=== PATIENT | female | born 1935 | race Caucasian/White ===

== ENCOUNTER 2017-01-06 12:05 | Emergency (ER) | payer MEDICARE ==
[~2017-01-06] VITALS: Ht 154.9 cm; Wt 54.4 kg
--- NOTE | ~2017-01-06 | CR281 ---
[facility] A Service of [facility] RADIOLOGY TEXT RESULTS PATIENT: RON ARNOLD LOCATION: [facility] : 37 UNIT #: [id number] AGE: [address]: Nadine Wellington SEX: F ORDER DR: [id number] [facility] [address] [place], [place] [address] [id number] E MR#: [id number] Acc #: [id number] NAME: RON ARNOLD. : 1935 SEX: F STUDY DATE/TIME: 01/06/2017 13:24 UNIT: [facility] ROOM: STUDY DESCRIPTION: CR Wrist Min 3 View Lt Attending Physician: Nadine Wellington Pa-C Ordering Physician: Nadine Wellington Pa-C Primary Care Physician: Jose M Woodruff M.D. MEDICAL IMAGING REPORT This report is preliminary unless electronic signature is present EXAM Left wrist 3 views 01/06/2017 HISTORY Left wrist pain and bruising laterally status post fall today at [facility]. FINDINGS Three views of the left wrist demonstrate no definite fracture. The bones are osteopenic. There is degenerative narrowing of the radiocarpal joint. Degenerative cyst formation involving the proximal carpal row and there is degenerative change involving the first carpometacarpal joint. Soft tissue swelling is seen about the left wrist. IMPRESSION 1. Osteopenia. No definite fracture. 2. Mild soft tissue swelling about the left wrist. Dictated by... Rob Perkins M.D. THIS IS AN ELECTRONICALLY VERIFIED REPORT Rob Perkins M.D. at 01/07/2017 10:36 AM KEITH/mechelle TD: 01/06/2017 14:02 JOB #: [id number] MEDICAL IMAGING REPORT Page 1 of 1 COPY
--- NOTE | ~2017-01-06 | CT71 ---
[facility] A Service of [facility] RADIOLOGY TEXT RESULTS PATIENT: RON ARNOLD LOCATION: [facility] : 37 UNIT #: [id number] AGE: [address]: Nadine Wellington SEX: F ORDER DR: [id number] [facility] [address] [place], [place] [address] [id number] P MR#: [id number] Acc #: [id number] NAME: RON ARNOLD : 1935 SEX: F STUDY DATE/TIME: 01/06/2017 13:03 UNIT: [place] ROOM: STUDY DESCRIPTION: CT Head Wo Contrast Attending Physician: Nadine Wellington Pa-C Ordering Physician: Nadine Wellington Pa-C Primary Care Physician: Jose M Woodruff M.D. MEDICAL IMAGING REPORT This report is preliminary unless electronic signature is present EXAM Head CT without contrast 01/06/2017 HISTORY Headache and head trauma status post fall at 11:30 a.m. today. Facial abrasions and nasal injury. No loss of consciousness. Hypertension and diabetes. FINDINGS This CT examination was performed with one or more of the following radiation dose reduction techniques: automatic exposure control, adjustment of mA and/or kV according to patient size, and iterative reconstruction. Axial images of the brain obtained without contrast show generalized atrophy. There is no evidence of mass effect, hemorrhage, or edema and no midline shift is seen. No acute changes are noted. IMPRESSION Atrophy; otherwise, normal CT of the brain. Dictated by... Rob Perkins M.D. THIS IS AN ELECTRONICALLY VERIFIED REPORT Rob Perkins M.D. at 01/07/2017 10:36 AM KEITH/mechelle TD: 01/06/2017 13:10 JOB #: [id number] [facility] A Service [facility] RADIOLOGY TEXT RESULTS PATIENT: RON ARNOLD LOCATION: [facility] : 37 UNIT #: [id number] AGE: [address]: Nadine Wellington SEX: F ORDER DR: MEDICAL IMAGING REPORT Page 1 of 1 COPY
--- NOTE | ~2017-01-06 | CR93 ---
[facility] A Service of [facility] RADIOLOGY TEXT RESULTS PATIENT: RON ARNOLD LOCATION: [facility] : 37 UNIT #: [id number] AGE: [address]: Nadine Wellington SEX: F ORDER DR: [id number] [facility] [address] [place], [place] [address] [id number] E MR#: [id number] Acc #: [id number] NAME: RON ARNOLD : 1935 SEX: F STUDY DATE/TIME: 01/06/2017 14:32 UNIT: [facility] ROOM: STUDY DESCRIPTION: CR Elbow Min 3 Views Lt Attending Physician: Nadine Wellington Pa-C Ordering Physician: Nadine Wellington Pa-C Primary Care Physician: Jose M Woodruff M.D. MEDICAL IMAGING REPORT This report is preliminary unless electronic signature is present EXAM Right elbow 3 views, 01/06/2017 HISTORY Right elbow pain and bruising posteriorly status post fall today at [facility]. FINDINGS 3 views of the right elbow demonstrate minimal lucency along the medial epicondyle suspicious for nondisplaced fracture. No other fracture or dislocation is seen. The bones appear somewhat osteopenic. Degenerative osteophytic spurring is seen along the proximal radius and ulna. Anterior and posterior fat pad sign is seen on the lateral view suggesting elbow joint effusion. IMPRESSION 1. Ill-defined lucency involving the superior aspect of the medial epicondyle suggesting nondisplaced fracture. The bones are osteopenic. 2. Anterior and posterior fat pad sign on the lateral view suggesting elbow joint effusion. 3. Degenerative change with osteophytic spurring along the proximal radius and ulna. Dictated by... Rob Perkins M.D. THIS IS AN ELECTRONICALLY VERIFIED REPORT Rob Perkins M.D. at 01/07/2017 10:37 AM KEITH/karmen TD: 01/06/2017 15:10 JOB #: [id number] [facility] A Service of [facility] & [facility] RADIOLOGY TEXT RESULTS PATIENT: RON ARNOLD LOCATION: [facility] : 37 UNIT #: [id number] AGE: [address]: Nadine Wellington SEX: F ORDER DR: MEDICAL IMAGING REPORT Page 1 of 1 COPY
--- NOTE | ~2017-01-06 | CR156 ---
[facility] A Service of [facility] RADIOLOGY TEXT RESULTS PATIENT: RON ARNOLD LOCATION: [facility] : 37 UNIT #: [id number] AGE: [address]: Nadine Wellington SEX: F ORDER DR: [id number] [facility] [address] [place], [place] [address] [id number] E MR#: [id number] Acc #: [id number] NAME: RON ARNOLD. : 1935 SEX: F STUDY DATE/TIME: 01/06/2017 13:24 UNIT: [facility] ROOM: STUDY DESCRIPTION: CR Humerus Min 2 View Lt Attending Physician: Nadine Wellington Pa-C Ordering Physician: Nadine Wellington Pa-C Primary Care Physician: Jose M Woodruff M.D. MEDICAL IMAGING REPORT This report is preliminary unless electronic signature is present EXAM Left humerus 2 views, 01/06/2017 HISTORY Left upper arm pain and bruising status post fall today at [facility]. FINDINGS 2 views of the left humerus demonstrate oblique lucency involving the medial epicondyle on the anterior view. Findings are suspicious for possible fracture. Correlation with plain film radiographs of the left elbow is suggested. The bones are osteopenic. There is degenerative narrowing of the left glenohumeral joint. There is no soft tissue abnormality. IMPRESSION 1. Ill-defined lucency involving the medial epicondyle on the anterior view suspicious for possible nondisplaced fracture. Correlation with plain film radiographs of the left elbow is suggested. 2. Osteopenia. Dictated by... Rob Perkins M.D. THIS IS AN ELECTRONICALLY VERIFIED REPORT Rob Perkins M.D. at 01/07/2017 10:36 AM KEITH/karmen TD: 01/06/2017 13:59 JOB #: [id number] MEDICAL IMAGING REPORT Page 1 of 1 COPY
[~2017-01-06 12:05] MED LIST: ATENOLOL50 MG PO; COZAAR25 MG PO; CRESTOR40 MG PO; HYDROCODONE-APA1 T54 PO; JANUVIA25 MG PO; KOMBIGLYZE XR1 EAC1 PO; MAGNESIUM400 MG PO; NEXIUM 24HR20 MG PO; TENORMIN50 MG PO; TRILIPIX135 MG PO; ZETIA PO
== END 2017-01-06 15:20 | disposition home or self-care (01) ==
LOC: CED 12:05 → CFTX 12:05
DX: S42.442A Displaced fracture (avulsion) of medial epicondyle of left humerus, initial encounter for closed fracture (principal); I10 Essential (primary) hypertension; W01.0XXA Fall on same level from slipping, tripping and stumbling without subsequent striking against object, initial encounter; Y92.830 Public park as the place of occurrence of the external cause; Z88.8 Allergy status to other drugs, medicaments and biological substances; Z23 Encounter for immunization
CPT/HCPCS: 70450; 73060; 73080; 73110; 90471; 90715; 99283